=== PATIENT | female | born 1975 | race Caucasian/White ===

== ENCOUNTER 2017-09-02 06:50 | Day surgery (SDC) | payer BC ==
[2017-08-30 13:23] LABS: BILIRUBIN,URINE NEGATIVE (NEGATIVE); BLOOD, URINE 2+ (NEGATIVE); CLARITY/URINE CLEAR (CLEAR); COLOR,URINE YELLOW (YELLOW); GLUCOSE,URINE NEGATIVE (NEGATIVE); KETONES,URINE NEGATIVE (NEGATIVE); LEUKOCYTE ESTERASE ,URINE NEGATIVE (NEGATIVE); NITRITE, URINE NEGATIVE (NEGATIVE); PH,URINE 6.5 (5.0-8.0); PROTEIN URINE NEGATIVE (NEGATIVE); UROBILINOGEN,URINE 0.2 (0.2-1.0)
[2017-08-30 13:32] LABS: CALCIUM 9.3 mg/dL (8.4-11.0); CREATININE 0.67 mg/dL (0.55-1.30); POTASSIUM 3.7 mmol/L (3.5-5.1)
[2017-08-30 13:37] LABS: HCG,QUAL RESULT NEGATIVE (NEGATIVE)
[2017-08-30 13:40] LABS: BACTERIA,URINE MANY /HPF (None Seen); RBC,URINE 0-3 /HPF (0-3); WBC,URINE 0-3 /HPF (0-3)
[2017-08-30 13:41] LABS: MUCUS,URINE None Seen /LPF (None Seen)
[2017-08-30 13:59] LABS: BASOPHILS # (AUTO) 0.1 K/uL (0.0-0.2); BASOPHILS % (AUTO) 0.5 % (0.0-2.0); EOSINOPHILS # (AUTO) 0.2 K/uL (0.0-0.4); EOSINOPHILS % (AUTO) 1.2 % (0.0-4.0); HEMATOCRIT 35.2 % (36-48); HEMOGLOBIN 11.1 g/dL (12.0-16.0); LYMPHOCYTES # (AUTO) 2.6 K/uL (1.0-5.5); MEAN CORPUSCULAR HEMOGLOBIN 23 pg (27-31); MEAN CORPUSCULAR HGB CONC 31 % (32-36); MEAN CORPUSCULAR VOLUME 72 fL (79.0-98.0); MONOCYTES # (AUTO) 0.4 K/uL (0.0-1.0); NEUTROPHILS # (AUTO) 11.1 K/uL (1.8-7.7); NEUTROPHILS % (AUTO) 77.3 % (40.0-70.0); PLATELET COUNT (AUTO) 545 K/uL (130-430); RED BLOOD CELL COUNT(AUTO) 4.91 MIL/uL (4.2-6.2); RED CELL DISTRIBUTION WIDTH 15.1 % (9.0-15.0); WHITE BLOOD COUNT (AUTO) 14.4 K/uL (4.8-10.8)
[~2017-09-02] VITALS: Ht 165.1 cm; Wt 109.8 kg
[2017-09-02] MEDS ORDERED: NALOXONE HCL 0.4 MG/ML AMP (NARCAN) IVP ONE (10:15)
[2017-09-02] MEDS ORDERED: fentaNYL CITRATE/PF 100 MCG/2 ML AMP IVP PRN (10:15)
[2017-09-02] MEDS ORDERED: MEPERIDINE HCL/PF 25 MG/ML DISP.SYRIN IVP PRN (10:15)
[2017-09-02] MEDS ORDERED: KETOROLAC TROMETHAMINE 30 MG VIAL IVP ONE ×2 (10:15→10:33)
[2017-09-02] MEDS ORDERED: MIDAZOLAM HCL 5 MG/5 ML VIAL IVP PRN (10:15)
[2017-09-02] MEDS ORDERED: ONDANSETRON HCL 4 MG/2 ML VIAL IVP ONE ×2 (10:15→10:33)
[2017-09-02] MEDS ORDERED: SEVOFLURANE 15 MIN GAS INH ONE (10:33)
[2017-09-02] MEDS ORDERED: PROPOFOL 200MG/ 20ML VIAL (DIPRIVAN) IV ONE (10:33)
[2017-09-02] MEDS ORDERED: LR 1,000 ML IV.SOLN IV ONE (10:33)
[2017-09-02] MEDS ORDERED: NS 1000 ML BAG IV ONE (10:33)
[2017-09-02] MEDS ORDERED: fentaNYL CITRATE/PF 100 MCG/2 ML AMP IVP ONE (10:33)
[2017-09-02] MEDS ORDERED: MEPERIDINE HCL/PF 25 MG/ML DISP.SYRIN IVP ONE (10:33)
[2017-09-02] MEDS ORDERED: MIDAZOLAM HCL 5 MG/ML VIAL (VERSED) IV ONE (10:33)
[2017-09-02] MEDS ORDERED: DEXAMETHASONE SOD PHOSPHATE 4 MG/ML VIAL IVP ONE (10:33)
[2017-09-02] MEDS ORDERED: NS IRRIG SOLN 1000 ML IR ONE (10:33)
[2017-09-02] MEDS ORDERED: LIDOCAINE 1% 10 MG/ML, 20 ML MDV INJ ONE (10:33)
[2017-09-02] MEDS ORDERED: OXYCODONE/ACETAMINOPHEN 5-325 TABLET PO PRN ×2 (10:45)
[2017-09-02] MEDS ORDERED: IBUPROFEN 800 MG TABLET PO PRN (10:45)
[2017-09-02] MEDS ORDERED: ONDANSETRON HCL 4 MG/2 ML VIAL IVP PRN (10:45)
[2017-09-02 12:01] VITALS: BP_SYST 127
== END 2017-09-02 12:50 | disposition home or self-care (01) ==
LOC: SDS 06:50 → SMU 06:50 → SDS 12:50
PROVIDERS: ATTEND Obstetrics & Gynecology
DX: N92.0 Excessive and frequent menstruation with regular cycle (principal); J45.909 Unspecified asthma, uncomplicated; D50.9 Iron deficiency anemia, unspecified; E66.9 Obesity, unspecified; Z79.899 Other long term (current) drug therapy; Z68.41 Body mass index [BMI] 40.0-44.9, adult; Z80.0 Family history of malignant neoplasm of digestive organs
CPT/HCPCS: 36415; 58558; 76000; 80048; 81000; 84703; 85025; 87086; 88305; J1100; J1885; J2001; J2175; J2250; J2405; J2704; J3010; J7030; J7120

== ENCOUNTER 2017-10-28 06:10 | Day surgery (SDC) | payer BC ==
[2017-10-25 12:41] LABS: BASOPHILS # (AUTO) 0.1 K/uL (0.0-0.2); BASOPHILS % (AUTO) 0.7 % (0.0-2.0); EOSINOPHILS # (AUTO) 0.2 K/uL (0.0-0.4); EOSINOPHILS % (AUTO) 1.7 % (0.0-4.0); HEMATOCRIT 36.3 % (36-48); HEMOGLOBIN 11.6 g/dL (12.0-16.0); LYMPHOCYTES # (AUTO) 2.3 K/uL (1.0-5.5); LYMPHOCYTES % (AUTO) 17.9 % (20.5-51.5); MEAN CORPUSCULAR HEMOGLOBIN 24 pg (27-31); MEAN CORPUSCULAR HGB CONC 32 % (32-36); MEAN CORPUSCULAR VOLUME 74 fL (79.0-98.0); MONOCYTES # (AUTO) 0.6 K/uL (0.0-1.0); MONOCYTES % (AUTO) 4.4 % (1.7-9.3); NEUTROPHILS # (AUTO) 9.5 K/uL (1.8-7.7); NEUTROPHILS % (AUTO) 75.3 % (40.0-70.0); PLATELET COUNT (AUTO) 453 K/uL (130-430); RED CELL DISTRIBUTION WIDTH 15.9 % (9.0-15.0); WHITE BLOOD COUNT (AUTO) 12.7 K/uL (4.8-10.8)
[2017-10-25 12:57] LABS: BILIRUBIN,URINE NEGATIVE (NEGATIVE); BLOOD, URINE NEGATIVE (NEGATIVE); CLARITY/URINE CLEAR (CLEAR); COLOR,URINE YELLOW (YELLOW); GLUCOSE,URINE NEGATIVE (NEGATIVE); KETONES,URINE NEGATIVE (NEGATIVE); LEUKOCYTE ESTERASE ,URINE NEGATIVE (NEGATIVE); NITRITE, URINE NEGATIVE (NEGATIVE); PROTEIN URINE NEGATIVE (NEGATIVE); UROBILINOGEN,URINE 0.2 (0.2-1.0)
[~2017-10-28] VITALS: Ht 165.1 cm; Wt 111.6 kg
[2017-10-28] MEDS ORDERED: LR 1,000 ML IV SCH (07:43)
[2017-10-28] MEDS ORDERED: fentaNYL CITRATE/PF 100 MCG/2 ML AMP IVP ONE (07:45)
[2017-10-28] MEDS ORDERED: METOCLOPRAMIDE HCL 10 MG/2 ML VIAL IVP PRN (07:45)
[2017-10-28] MEDS ORDERED: NS IRRIG SOLN 1000 ML IR ONE (07:45)
[2017-10-28] MEDS ORDERED: MORPHINE 4 MG/ML INJ. SYRINGE IVP PRN ×3 (07:45)
[2017-10-28] MEDS ORDERED: ONDANSETRON HCL 4 MG/2 ML VIAL IVP ONE (07:45)
[2017-10-28] MEDS ORDERED: KETOROLAC TROMETHAMINE 30 MG VIAL IVP ONE (07:45)
[2017-10-28] MEDS ORDERED: PROPOFOL 200MG/ 20ML VIAL (DIPRIVAN) IV ONE ×2 (07:45)
[2017-10-28] MEDS ORDERED: MIDAZOLAM HCL 5 MG/5 ML VIAL IVP ONE (07:45)
[2017-10-28] MEDS ORDERED: LR 1,000 ML IV.SOLN IV ONE (07:45)
[2017-10-28] MEDS ORDERED: SEVOFLURANE 15 MIN GAS INH ONE (07:45)
[2017-10-28] MEDS ORDERED: ONDANSETRON HCL 4 MG/2 ML VIAL IVP PRN (08:45)
[2017-10-28] MEDS ORDERED: OXYCODONE/ACETAMINOPHEN 5-325 TABLET PO PRN ×2 (08:45)
[2017-10-28] MEDS ORDERED: IBUPROFEN 800 MG TABLET PO PRN (08:45)
[2017-10-28] MEDS ORDERED: MORPHINE 4 MG/ML INJ. SYRINGE ONE ×2 (08:46→09:24)
[2017-10-28 09:47] VITALS: BP_SYST 122
== END 2017-10-28 10:55 | disposition home or self-care (01) ==
LOC: SDS 06:10 → SMU 06:10 → SDS 10:55
PROVIDERS: ATTEND Obstetrics & Gynecology
DX: N92.0 Excessive and frequent menstruation with regular cycle (principal); J45.909 Unspecified asthma, uncomplicated; D50.9 Iron deficiency anemia, unspecified; Z98.51 Tubal ligation status; Z82.49 Family history of ischemic heart disease and other diseases of the circulatory system; Z83.3 Family history of diabetes mellitus; Z80.0 Family history of malignant neoplasm of digestive organs; Z79.899 Other long term (current) drug therapy; Z68.41 Body mass index [BMI] 40.0-44.9, adult; E66.01 Morbid (severe) obesity due to excess calories
CPT/HCPCS: 36415; 58563; 81003; 84703; 85025; 88305; J1885; J2250; J2270; J2405; J2704; J3010; J7120

== ENCOUNTER 2018-03-18 08:05 | Outpatient (CLI) | payer BC ==
[2018-03-18] MEDS ORDERED: CYSTOGRAFIN 300 ML INFUS..BTL UR ONE (08:55)
== END 2018-03-18 13:00 | disposition home or self-care (01) ==
LOC: SRD 08:05
PROVIDERS: ATTEND Obstetrics & Gynecology
DX: N92.0 Excessive and frequent menstruation with regular cycle (principal); R87.9 Unspecified abnormal finding in specimens from female genital organs
CPT/HCPCS: 74430; Q9958

== ENCOUNTER 2018-06-09 05:42 | Inpatient (IN) | payer BC ==
[2018-06-06 11:37] LABS: BASOPHILS % (AUTO) 0.4 % (0.0-2.0); EOSINOPHILS # (AUTO) 0.1 K/uL (0.0-0.4); EOSINOPHILS % (AUTO) 0.7 % (0.0-4.0); HEMATOCRIT 32.2 % (36-48); HEMOGLOBIN 10.2 g/dL (12.0-16.0); LYMPHOCYTES # (AUTO) 2.4 K/uL (1.0-5.5); LYMPHOCYTES % (AUTO) 19.4 % (20.5-51.5); MEAN CORPUSCULAR HEMOGLOBIN 23 pg (27-31); MEAN CORPUSCULAR HGB CONC 32 % (32-36); MEAN CORPUSCULAR VOLUME 72 fL (79.0-98.0); MONOCYTES # (AUTO) 0.4 K/uL (0.0-1.0); MONOCYTES % (AUTO) 3.5 % (1.7-9.3); NEUTROPHILS # (AUTO) 9.3 K/uL (1.8-7.7); PLATELET COUNT (AUTO) 491 K/uL (130-430); RED CELL DISTRIBUTION WIDTH 14.5 % (9.0-15.0); WHITE BLOOD COUNT (AUTO) 12.2 K/uL (4.8-10.8)
[2018-06-06 11:42] LABS: CALCIUM 9.6 mg/dL (8.4-11.0); CREATININE 0.72 mg/dL (0.55-1.30); POTASSIUM 3.9 mmol/L (3.5-5.1)
[2018-06-06 11:50] LABS: CLARITY/URINE HAZY (CLEAR); COLOR,URINE YELLOW (YELLOW); PROTEIN URINE TRACE (NEGATIVE)
[2018-06-06 11:51] LABS: BILIRUBIN,URINE NEGATIVE (NEGATIVE); BLOOD, URINE 3+ (NEGATIVE); GLUCOSE,URINE NEGATIVE (NEGATIVE); KETONES,URINE NEGATIVE (NEGATIVE); LEUKOCYTE ESTERASE ,URINE 2+ (NEGATIVE); NITRITE, URINE NEGATIVE (NEGATIVE); UROBILINOGEN,URINE 0.2 (0.2-1.0)
[2018-06-06 11:56] LABS: BACTERIA,URINE FEW /HPF (None Seen); MUCUS,URINE 1+ /LPF (None Seen); RBC,URINE 50-80 /HPF (0-3); WBC,URINE 20-50 /HPF (0-3)
[~2018-06-09] VITALS: Ht 162.6 cm; Wt 112.0 kg
[~2018-06-09 05:42] MED LIST: LevALBUTEROL HCL 1.25 MG/0.5 ML *CONC.* VIAL.NEB (XOPENEX CONC.) INH ONE
[2018-06-09] MEDS ORDERED: LevALBUTEROL HCL 1.25 MG/0.5 ML *CONC.* VIAL.NEB (XOPENEX CONC.) INH ONE (06:42)
[2018-06-09] MEDS ORDERED: CEFAZOLIN 2 GM IVPB PREMIX 50 ML IV ONE ×2 (07:00→07:32)
[2018-06-09] MEDS ORDERED: LR 1,000 ML IV SCH (09:03)
[2018-06-09] MEDS ORDERED: HYDROmorphone 2 MG/ML VIAL IVP PRN ×2 (09:15)
[2018-06-09] MEDS ORDERED: MEPERIDINE HCL/PF 25 MG/ML DISP.SYRIN IVP PRN (09:15)
[2018-06-09] MEDS ORDERED: HYDROmorphone 1 MG INJ. 1 MG/ML AMPUL IVP PRN (09:15)
[2018-06-09] MEDS ORDERED: ONDANSETRON HCL 4 MG/2 ML VIAL ONE (10:25)
[2018-06-09] MEDS ORDERED: LR 1,000 ML IV.SOLN IV ONE (10:25)
[2018-06-09] MEDS ORDERED: DEXAMETHASONE SOD PHOSPHATE 4 MG/ML VIAL ONE (10:25)
[2018-06-09] MEDS ORDERED: INSULIN REGULAR, HUMAN 100 UNITS/ML, 10 ML VIAL ONE (10:25)
[2018-06-09] MEDS ORDERED: KETOROLAC TROMETHAMINE 30 MG VIAL ONE (10:25)
[2018-06-09] MEDS ORDERED: METOCLOPRAMIDE HCL 10 MG/2 ML VIAL ONE (10:25)
[2018-06-09] MEDS ORDERED: NS 1000 ML IV.SOLN IV ONE (10:25)
[2018-06-09] MEDS ORDERED: GENTAMICIN 120 mg/ NS 100 mL IVPB IV ONE (10:25)
[2018-06-09] MEDS ORDERED: MIDAZOLAM HCL 5 MG/ML VIAL (VERSED) IV ONE (10:25)
[2018-06-09] MEDS ORDERED: SEVOFLURANE 15 MIN GAS INH ONE (10:25)
[2018-06-09] MEDS ORDERED: ROCURONIUM BROMIDE 10 MG/ML (ZEMURON) ONE (10:25)
[2018-06-09] MEDS ORDERED: PROPOFOL 200MG/ 20ML VIAL (DIPRIVAN) IV ONE (10:25)
[2018-06-09] MEDS ORDERED: fentaNYL CITRATE 250 MCG/5 ML AMP ONE (10:25)
[2018-06-09] MEDS ORDERED: SIMETHICONE 80 MG TAB.CHEW PO PRN (10:30)
[2018-06-09] MEDS ORDERED: OXYCODONE/ACETAMINOPHEN 5-325 TABLET PO PRN (10:30)
[2018-06-09] MEDS ORDERED: INSULIN REGULAR, HUMAN 10 UNITS/0.1 ML INJ IVP ONE (11:00)
[2018-06-09] MEDS ORDERED: HYDROmorphone 1 MG INJ. 1 MG/ML AMPUL ONE (11:05)
[2018-06-09] MEDS: LR 1,000 ML IV SCH ×2 (11:40→20:25)
--- NOTE | 2018-06-09 11:40 | NUR ---
NOTES RECEIVED PT FROM [facility] S/P HYSTERECTOMY, WITH X4 INCISION ON THE ABDOMEN DRY AND INTACT. IVF OF LR RUNNING AT THIS TIME. PAIN IS CONTROLLED AT THIS TIME. ORIENTED TO CALL LIGHT USE. SAFETY PRECAUTION OBSERVED, CALL LIGHT WITHIN REACH. WILL MONITOR.
--- NOTE | 2018-06-09 11:42 | NUR ---
PAGED PAGED THADDEUS MEDINA AT [phone] SPOKE WITH JUNO.
[2018-06-09 12:18] VITALS: BP_SYST 124
--- NOTE | 2018-06-09 13:00 | NUR ---
NOTE- INSTRUCTED TO USE INCENTIVE SPIROMETER, DEEP BREATHING AND COUGHING EXERCISE.
[2018-06-09] MEDS: OXYCODONE/ACETAMINOPHEN 5-325 TABLET PO PRN ×2 (13:03→16:52)
[2018-06-09] MEDS: CEFAZOLIN 2 GM IVPB PREMIX 50 ML IV SCH ×2 (15:21→21:27)
--- NOTE | 2018-06-09 15:52 | NUR ---
NOTES-ASSISTED TO THE BATHROOM AND HAD BOWEL MOVEMENT. PAIN IS CONTROLLED AT THIS TIME. ICE PACK APPLIED ON THE ABDOMEN. Addendum: 06/09/18 at 1756 by Elba Kimball RN PT VOIDED AND NOT BOWEL MOVEMENT.
[2018-06-09] MEDS: ONDANSETRON HCL 4 MG/2 ML VIAL IVP PRN ×2 (16:02→21:57)
--- NOTE | 2018-06-09 16:10 | NUR ---
NOTES- FEELS NAUSEATED, ZOFRAN GIVEN ORDERED.
--- NOTE | 2018-06-09 16:30 | NUR ---
DR. KNIGHT HERE AND MADE AWARE THAT UNDER DR. BARRETT'S ORDER, HE WANTS HIM TO BE THE ADMITTING DOCTOR. PER DR. KNIGHT, HE CAN ONLY BE CONSULT AND NOT THE ADMITTING.
[2018-06-09 16:37] VITALS: BP_SYST 112
--- NOTE | 2018-06-09 18:49 | NUR ---
Notes Pt in bed, throws up. was medicated with zofran earlier. patient stated that she feels better after she throws up. will endorse.
--- NOTE | 2018-06-09 19:27 | NUR ---
OPENING NOTE Received report from JERI. Patient resting in bed awake, alert, oriented x4. Breathing unlabored and even on room air. No signs of distress, no needs at this time. Fall and safety precautions in place. Bed in lowest position, brake on, call light within reach. IVF infusing as ordered. SCDs on. IS at the bedside. at the bedside. S/P hysterectomy, surgical dressings clean, dry, intact. Will continue to monitor.
[2018-06-09 20:30] VITALS: BP_SYST 116
[2018-06-09] MEDS ORDERED: SENNOSIDES/DOCUSATE SODIUM 1 TAB TABLET(SENOKOT-S) PO PRN ×2 (21:00)
[2018-06-09] MEDS ORDERED: TEMAZEPAM 15 MG CAPSULE PO PRN (21:00)
[2018-06-09] MEDS: IBUPROFEN 800 MG TABLET PO PRN (21:53)
--- NOTE | 2018-06-09 21:54 | NUR ---
IV abx hung. Pt c/o pain. Administered PRN motrin PO as ordered. Patient states she still feels nauseous
--- NOTE | 2018-06-09 21:58 | NUR ---
Administered PRN zofran IVP for nausea.
--- NOTE | 2018-06-09 23:41 | NUR ---
Patient resting in bed with eyes closed. Breathing unlabored and even on room air. No signs of distress, no needs at this time. Fall and safety precautions in place. Bed in lowest position, brake on, call light within reach. IVF infusing as ordered. SCDs on. at the bedside. Will continue to monitor.
[2018-06-10 00:56] VITALS: BP_SYST 115
--- NOTE | 2018-06-10 01:17 | NUR ---
Patient resting in bed with eyes closed. Breathing unlabored and even on room air. No signs of distress, no needs at this time. Fall and safety precautions in place. Bed in lowest position, brake on, call light within reach. IVF infusing as ordered. at the bedside. Will continue to monitor.
--- NOTE | 2018-06-10 05:08 | NUR ---
Assisted patient to the bathroom.
[2018-06-10] MEDS: IBUPROFEN 800 MG TABLET PO PRN ×2 (05:43→11:49)
--- NOTE | 2018-06-10 05:44 | NUR ---
Patient c/o pain. Administered PRN motrin PO as ordered.
--- NOTE | 2018-06-10 06:46 | NUR ---
CLOSING NOTE Patient resting in bed awake, alert, oriented x4. Breathing unlabored and even on room air. No signs of distress, no needs at this time. Fall and safety precautions in place. Bed in lowest position, brake on, call light within reach. at the bedside. Will endorse cares to day shift nurse.
--- NOTE | 2018-06-10 06:54 | NUR ---
Patient requesting abd binder. Will endorse to day shift nurse to get order.
[2018-06-10 07:14] LABS: HEMATOCRIT 23.9 % (36-48); HEMOGLOBIN 7.6 g/dL (12.0-16.0)
--- NOTE | 2018-06-10 07:25 | NUR ---
Opening Note: Patient laying in bed resting, at bedside, patient denies pain and discomfort. Patient denies nausea and vomiting. Breathing is even and unlabored with no distress noted. IV patent and intact. SCD's in place. Safety precautions in place, bed in lowest position, wheels locked, side rails x3, bed alarm activated and call light within reach. No needs at this time. Will continue to monitor.
[2018-06-10 08:50] VITALS: BP_SYST 128
--- NOTE | 2018-06-10 10:57 | NUR ---
Nutrition Update Camilo Scale 18 noted. Pt admitted for leiomyoma of uterus, unspecified. Diet: clear liquid BMI: 42.4 kg/m2 RD to follow per nutrition care standards.
--- NOTE | 2018-06-10 12:03 | NUR ---
Rounds: Patient in bed resting, at bedside. Patient given PRN Motrin per MD orders, see eMAR. Will reassess. Breathing even and unlabored with no distress noted. Patient fells gas pressure in abdominal area, Mylicon given per MD orders, see eMAR, will reassess. Patient ambulated 10x, paced back and forth in room. Steady gait. Patient using incentive spirometer as instructed. Safety precautions in place and call light within reach. No needs at this time. Will continue to monitor. Addendum: 06/10/18 at 1206 by Alma Delia Mckeon RN Abdominal binder placed.
[2018-06-10 12:36] VITALS: BP_SYST 106
[2018-06-10 13:53] LABS: CALCIUM 8.4 mg/dL (8.4-11.0); CREATININE 0.85 mg/dL (0.55-1.30); POTASSIUM 3.9 mmol/L (3.5-5.1)
[2018-06-10 13:59] LABS: ALBUMIN 2.9 g/dL (3.4-4.8); TOTAL BILIRUBIN 0.4 mg/dL (0.0-1.0)
--- NOTE | 2018-06-10 14:00 | NUR ---
Rounds: Patient in bed resting, denies pain and discomfort. Gas pressure is relieved. No distress noted. Will continue to monitor.
--- NOTE | 2018-06-10 16:00 | NUR ---
Rounds: Patient in bed resting, at bedside. Patient denies pain and discomfort. Breathing even and unlabored with no distress noted. Patient is a self hunt, repositions self. Safety precautions in place and call light within reach. No needs at this time. Will continue to monitor.
[2018-06-10 16:22] VITALS: BP_SYST 110
[2018-06-10 16:35] VITALS: BP_SYST 110
== END 2018-06-10 16:50 | disposition home or self-care (01) | DRG 742 ==
LOC: SDS 05:42 → SMU 10:27
PROVIDERS: ADMIT Internal Medicine Hospice and Palliative Medicine; ATTEND Obstetrics & Gynecology
PROC: 0UT90ZZ Resection of Uterus, Open Approach (ICD-10-PCS; 2018-06-09)
PROC: 0UT70ZZ Resection of Bilateral Fallopian Tubes, Open Approach (ICD-10-PCS; 2018-06-09)
PROC: 8E0W0CZ Robotic Assisted Procedure of Trunk Region, Open Approach (ICD-10-PCS; 2018-06-09)
PROC: 0UB97ZZ Excision of Uterus, Via Natural or Artificial Opening (ICD-10-PCS; principal; 2018-06-09 07:30)
DX: D25.9 Leiomyoma of uterus, unspecified (principal); Z68.41 Body mass index [BMI] 40.0-44.9, adult; E66.01 Morbid (severe) obesity due to excess calories; D64.9 Anemia, unspecified; E11.9 Type 2 diabetes mellitus without complications
CPT/HCPCS: 36415; 80048; 80053; 81000-TC; 82948; 82962; 83036; 84703; 85018-TC; 85025; 86886; 86900; 86901; 87081; 88307; 94640; E0190; J0690; J1100; J1170; J1580; J1815; J1885; J2250; J2405; J2704; J2765; J3010; J7030; J7120; J7612